=== PATIENT | female | born 1985 | race Two or more races ===

== ENCOUNTER 2016-09-20 00:47 | Emergency (ER) | payer MEDICAID ==
[~2016-09-20] VITALS: Ht 154.9 cm; Wt 65.8 kg
[~2016-09-20 00:47] MED LIST: ANTI-ITCH28 GM TOPIC; CIPROFLOXACIN500 M2 ORAL; HYDROCORTISONE28 G5 TP
[2016-09-20] MEDS ORDERED: Solu-MEDROL 125mg Inj IM ONE (01:30)
--- NOTE | 2016-09-20 01:53 | Emergency Room Report ---
History of Present Illness General Chief Complaint: Skin Rash/Abscess Source: Patient Present Illness HPI Patient present with complaints of itching and rash on the upper arms back and leg area Initially did not report any new medications or changes However later on in the evaluation states that she was on a cough syrup over the weekend The rash has started now for the past 2 days She also feels that she had a cold recently Denies any vomiting or diarrhea denies any fevers Denies any difficulty breathing or swallowing Allergies: Coded Allergies: No Known Allergies (Unverified , 03/09/14) Patient History Past Medical History: see triage record Pertinent Family History: none Last Menstrual Period: September 01, 2016 : 4 Para: 2 Reviewed Nursing Documentation: PMH: Agreed, PSxH: Agreed Nursing Documentation-PMH Past Medical History: No Stated History Review of Systems All Other Systems: negative except mentioned in HPI Physical Exam Vital Signs Date Time Temp Pulse Resp B/P Pulse Ox O2 Delivery O2 Flow Rate FiO2 09/20/16 00:53 98.2 93 17 119/75 100 Room Air Sp02 EP Interpretation: reviewed, normal General Appearance: well appearing, no apparent distress Head: normocephalic, atraumatic Eyes: bilateral eye EOMI, bilateral eye PERRL ENT: hearing grossly normal, normal pharynx, TMs + canals normal, uvula midline Neck: full range of motion, supple, no meningismus, no bony tend Respiratory: lungs clear, normal breath sounds, no rhonchi, no respiratory distress, no retraction, no accessory muscle use Cardiovascular #1: normal peripheral pulses, regular rate, rhythm, no edema, no gallop, no JVD, no murmur Gastrointestinal: normal bowel sounds, non tender, soft, no mass, no organomegaly, non-distended, no guarding, no hernia, no pulsatile mass, no rebound Genitourinary: no CVA tenderness Musculoskeletal: normal inspection Neurologic: oriented x3, responsive, flanger III-XII nml as tested, motor strength/ tone normal, sensory intact Psychiatric: mood/affect normal Skin: other - Fine erythematous rash involving both upper arms, back area in the lower legs, no signs of any blister formation or dermatomal fashion, no target cell appearance Lymphatic: normal inspection, no adenopathy Medical Decision Making Diagnostic Impression: Primary Impression: Rash and other nonspecific skin eruption ER Course Patient's findings do not appear to be in line with any acute emergency pathology Patient was treated symptomatically here in the ER And is stable for close outpatient follow Last Vital Signs Date Time Temp Pulse Resp B/P Pulse Ox O2 Delivery O2 Flow Rate FiO2 09/20/16 00:53 98.2 93 17 119/75 100 Room Air Status: improved Disposition: HOME, SELF-CARE Condition: Improved Scripts Diphenhydramine Hcl* (BENADRYL*) 25 Mg Capsule 25 MG ORAL Q6H Y for Itching, #20 CAP Prov: IQRA HOROWITZ D.O. 09/20/16 Ranitidine Hcl* (ZANTAC*) 150 Mg Tablet 150 MG ORAL TWICE A DAY, #30 TAB Prov: IQRA HOROWITZ D.O. 09/20/16 Prednisone* (PREDNISONE*) 20 Mg Tablet 20 MG ORAL BID, #8 TAB Prov: IQRA HOROWITZ D.O. 09/20/16 Referrals: NOT CHOSEN IPA/,REFERRING (PCP) Additional Instructions: Patient is provided with the discharge instructions notified to follow up with primary doctor in the next 2-3 days otherwise return to the er with any worsening symptoms. IQRA HOROWITZ D.O. Sep 20, 2016 01:53
[2016-09-20] MEDS ORDERED: PREDNISONE20 MG ORAL (01:54)
[2016-09-20] MEDS ORDERED: BENADRYL25 MG ORAL (01:54)
[2016-09-20] MEDS ORDERED: RANITIDINE HCL150 MG ORAL (01:54)
[2016-09-20 02:02] VITALS: BP 119/75
== END 2016-09-20 02:04 | disposition home or self-care (01) ==
LOC: EMR 01:32 → EDUNIT# 01:32 → EMR 02:04
DX: R21 Rash and other nonspecific skin eruption (principal)
CPT/HCPCS: 96372; 99284; J2930